=== PATIENT | male | born 1980 | race African-American/Black ===

== ENCOUNTER 2019-06-24 13:28 | Inpatient (IN) | payer OTHER ==
[~2019-06-24] VITALS: Ht 190.5 cm; Wt 76.2 kg
[~2019-06-24 13:28] MED LIST: DOCU-144 PO; PANT40TA4 PO; SERT50TA6 PO; UDMYL PO
[2019-06-24] MEDS ORDERED: LIDOCAINE/MYLANTA 40 ML BTL PO STA (13:43)
[2019-06-24] MEDS ORDERED: ONDANSETRON 4 MG INJ IV STA (13:43)
[2019-06-24] MEDS ORDERED: BELLADONNA/PHENOBARBITAL TAB PO STA (13:43)
[2019-06-24] MEDS ORDERED: SOD CHLORIDE 0.9% 1,000 ML IV STA ×2 (13:43→15:32)
[2019-06-24] MEDS ORDERED: FAMOTIDINE 20 MG TAB PO STA (13:43)
[2019-06-24] MEDS ORDERED: DICYCLOMINE 20 MG INJ IM ONE (14:00)
[2019-06-24] MEDS ORDERED: HALOPERIDOL 5 MG INJ IV ONE (14:00)
[2019-06-24] MEDS ORDERED: CAPSAICIN 0.025% 60 GM CR TOP STA (14:24)
[2019-06-24] MEDS ORDERED: HYDROmorphONE 2 MG/ML SYG IV STA (15:25)
[2019-06-24] MEDS ORDERED: LORAZEPAM 2 MG INJ IV ONE (16:00)
[2019-06-24] MEDS ORDERED: ONDANSETRON 4 MG INJ IV PRN (17:30)
[2019-06-24] MEDS ORDERED: ACETAMINOPHEN 325 MG TAB PO PRN (17:30)
[2019-06-24] MEDS ORDERED: NACL 0.9% 3 ML SYG IV SCH (17:30)
[2019-06-24 20:37] VITALS: Ht 190.5 cm; Wt 76.2 kg
[2019-06-24 20:57] VITALS: BP 113/71; PULSE 69; RESP 18
[2019-06-25 02:00] VITALS: BP 115/76; PULSE 66; RESP 18
[2019-06-25] MEDS: PANTOPRAZOLE (EC) 40 MG TAB PO SCH (05:13)
[2019-06-25 07:22] VITALS: BP 131/85; PULSE 80; RESP 16
[2019-06-25 14:26] VITALS: BP 126/94; PULSE 70; RESP 18
[2019-06-25] MEDS: LORAZEPAM 2 MG INJ IV PRN (15:28)
[2019-06-25] MEDS: AL HYDROX/MG HYDROX/SIMETH 30 ML CUP PO PRN (15:29)
[2019-06-25 20:00] VITALS: BP 149/98; PULSE 80; RESP 18
[2019-06-26 02:00] VITALS: BP 142/97; PULSE 80; RESP 18
[2019-06-26] MEDS: PANTOPRAZOLE (EC) 40 MG TAB PO SCH (06:14)
[2019-06-26 08:11] VITALS: BP 145/86; PULSE 66; RESP 18
[2019-06-26] MEDS: AL HYDROX/MG HYDROX/SIMETH 30 ML CUP PO PRN ×2 (10:47→17:46)
[2019-06-26 14:30] VITALS: BP 140/89; PULSE 71; RESP 16
[2019-06-26 19:52] VITALS: BP 142/92; PULSE 72; RESP 18
[2019-06-27 01:26] VITALS: BP 135/87; PULSE 61; RESP 17
[2019-06-27] MEDS: PANTOPRAZOLE (EC) 40 MG TAB PO SCH (06:05)
[2019-06-27 08:03] VITALS: BP 151/87; PULSE 64; RESP 18
[2019-06-27] MEDS: ONDANSETRON 4 MG INJ IV PRN ×2 (08:53→14:58)
[2019-06-27] MEDS: ACETAMINOPHEN 325 MG TAB PO PRN ×2 (08:55→15:17)
[2019-06-27] MEDS: SERTRALINE 50 MG TAB PO SCH (10:10)
[2019-06-27] MEDS: LORAZEPAM 2 MG INJ IV PRN (12:16)
[2019-06-27] MEDS: DOCUSATE SODIUM 100 MG CAP PO SCH ×2 (12:16→20:17)
[2019-06-27 13:39] VITALS: BP 167/105; PULSE 74; RESP 18
[2019-06-27 14:52] VITALS: BP 135/102; PULSE 70; RESP 17
[2019-06-27] MEDS ORDERED: ONDANSETRON 4 MG INJ IV PRN (19:30)
[2019-06-27 19:46] VITALS: BP 140/76; PULSE 77; RESP 17
[2019-06-27] MEDS ORDERED: KETOROLAC 30 MG INJ IV STA (19:54)
[2019-06-27] MEDS: AL HYDROX/MG HYDROX/SIMETH 30 ML CUP PO PRN (20:17)
[2019-06-27] MEDS: ONDANSETRON INJ 8 MG in SOD CHLORIDE 0.9% 50 ML IV PRN (20:47)
[2019-06-27] MEDS ORDERED: HYDROCODONE/APAP (5/325) TAB PO ONE (21:30)
[2019-06-27] MEDS ORDERED: METOCLOPRAMIDE 10 MG INJ IV PRN (21:30)
[2019-06-28 02:04] VITALS: BP 124/72; PULSE 81; RESP 18
[2019-06-28] MEDS: PANTOPRAZOLE (EC) 40 MG TAB PO SCH (05:13)
[2019-06-28] MEDS: ACETAMINOPHEN 325 MG TAB PO PRN (06:48)
[2019-06-28 07:22] VITALS: BP 145/101; PULSE 59; RESP 18
[2019-06-28] MEDS: SERTRALINE 50 MG TAB PO SCH (08:26)
[2019-06-28] MEDS: DOCUSATE SODIUM 100 MG CAP PO SCH ×2 (08:26→20:46)
[2019-06-28 14:00] VITALS: BP 140/94; PULSE 69; RESP 18
[2019-06-28 20:00] VITALS: BP 156/102; PULSE 71; RESP 17
[2019-06-29 02:18] VITALS: BP 141/81; PULSE 74; RESP 18
[2019-06-29] MEDS: PANTOPRAZOLE (EC) 40 MG TAB PO SCH (06:35)
[2019-06-29 07:20] VITALS: BP 159/108; PULSE 76; RESP 18
[2019-06-29] MEDS: SERTRALINE 50 MG TAB PO SCH (08:54)
[2019-06-29] MEDS: DOCUSATE SODIUM 100 MG CAP PO SCH ×2 (08:54→21:21)
[2019-06-29] MEDS: ONDANSETRON INJ 8 MG in SOD CHLORIDE 0.9% 50 ML IV PRN (11:04)
[2019-06-29] MEDS: ACETAMINOPHEN 325 MG TAB PO PRN (12:44)
[2019-06-29 13:39] VITALS: BP 138/101; PULSE 71; RESP 18
[2019-06-29] MEDS ORDERED: TRIMETHOBENZAMIDE 100 MG/ML VIAL IM PRN (15:00)
[2019-06-29 20:48] VITALS: BP 135/93; PULSE 64; RESP 18
[2019-06-30 02:17] VITALS: BP 158/96; PULSE 72; RESP 18
[2019-06-30] MEDS: PANTOPRAZOLE (EC) 40 MG TAB PO SCH (05:33)
[2019-06-30 07:21] VITALS: BP 137/92; PULSE 72; RESP 16
[2019-06-30] MEDS: SERTRALINE 50 MG TAB PO SCH (08:10)
[2019-06-30] MEDS: DOCUSATE SODIUM 100 MG CAP PO SCH (08:10)
[2019-06-30 15:05] VITALS: BP 158/98; PULSE 85; RESP 18
== END 2019-06-30 15:30 | DRG 881 ==
LOC: E/R 13:28 → MS3 17:25 → OBSVTOIN 06-25 16:41
PROVIDERS: ADMIT Internal Medicine; ATTEND Hospitalist
DX: F32.9 Major depressive disorder, single episode, unspecified (principal); R11.2 Nausea with vomiting, unspecified; F17.200 Nicotine dependence, unspecified, uncomplicated; F43.10 Post-traumatic stress disorder, unspecified; R10.13 Epigastric pain; F15.90 Other stimulant use, unspecified, uncomplicated; F14.90 Cocaine use, unspecified, uncomplicated; F13.90 Sedative, hypnotic, or anxiolytic use, unspecified, uncomplicated; F45.8 Other somatoform disorders
CPT/HCPCS: 36415; 74176; 80053; 80307; 83036; 83690; 83735; 84100; 84443; 85025; 96361; 96372; 96374; 96375; 99217; G0378; J0500; J1170; J1630; J1885; J2060; J2405; J2765; J7030